=== PATIENT | female | born 2000 | race Caucasian/White ===

== ENCOUNTER → 2024-04-22 11:11 | Outpatient (REF) | payer OTHER, SELFPAY ==
--- NOTE | 2024-04-22 14:42 | EEG.RPT ---
Electroencephalogram Report
Recording
Date of EE04/22/24
Type of EEG: Routine
Length of EEG recordin mins
Done with Video Recording: Yes
Patient Status: Outpatient
Recording Conditions: Awake and Drowsy
Hyperventilation Performed: Yes
Photic Stimulation Performed: Yes
Report
Clinical Background:�She is a 24 year old woman with hand coordination problem
Introduction: A routine bedside EEG was done using International 10-20 electrode placement protocol.
Background: In the most alert state, the PDR is 10-11 Hz in frequency with normal amplitude. There is spontaneous variability and reactivity.�
Sleep: No sleep is seen.�
Focal/epileptiform: There were no focal or epileptiform discharges. No clinical or electrographic seizures occurred during this recording.
Photic stimulation: resulted in normal driving response. There was no photo myogenic or photoparoxysmal response.�
Hyperventilation: resulted in symmetric slowing
Impression: Normal EEG
== END ==
LOC: EEG 11:11
PROVIDERS: ATTENDING PHYSICIAN Psychiatry & Neurology Neurology; FAMILY PHYSICIAN Emergency Medicine
DX: R40.4 Transient alteration of awareness (principal)
CPT/HCPCS: 95816

== ENCOUNTER → 2024-08-05 10:28 | Outpatient (REF) | payer OTHER, SELFPAY | LOC: PAVMRI 10:28 | PROVIDERS: ATTENDING PHYSICIAN Psychiatry & Neurology Neurology; FAMILY PHYSICIAN Emergency Medicine | DX: R40.4 Transient alteration of awareness (principal) | CPT/HCPCS: 70551 ==